=== PATIENT | male | born 1960 | race Caucasian/White ===

== ENCOUNTER 2016-11-02 00:37 | Emergency (ER) | payer OTHER, SELFPAY ==
[~2016-11-02] VITALS: Ht 185.4 cm; Wt 107.6 kg
[2016-11-02 00:39] VITALS: BP 187/98
[2016-11-02] MEDS ORDERED: LIDOCAINE 1%, 20ML SQ ONE (01:00)
[2016-11-02] MEDS ORDERED: LIDOCAINE 1%, 20ML ONE (01:13)
== END 2016-11-02 02:39 | disposition home or self-care (01) ==
LOC: ED 01:23
DX: S61.214A Laceration without foreign body of right ring finger without damage to nail, initial encounter (principal); I25.2 Old myocardial infarction; Z79.82 Long term (current) use of aspirin; X58.XXXA Exposure to other specified factors, initial encounter; Y93.89 Activity, other specified; Y92.89 Other specified places as the place of occurrence of the external cause; Y99.8 Other external cause status
CPT/HCPCS: 12001